=== PATIENT | male | born 1975 | race Caucasian/White ===

== ENCOUNTER 2018-04-02 07:26 | Emergency (ER) | payer MEDICAID ==
[2018-04-02 07:46] VITALS: BP 102/68
[2018-04-02] MEDS ORDERED: Ketorolac 60 MG/2 ML SDV IM ONE (07:56)
--- NOTE | 2018-04-02 08:00 | EDM.PDOC ---
ED HPI GENERAL MEDICAL PROBLEM - General Chief Complaint: Back Pain or Injury Stated Complaint: FELL OF LADDER Time Seen by Provider: 04/02/18 07:56 Source of Information: Reports: Patient History Limitations: Reports: No Limitations - History of Present Illness INITIAL COMMENTS - FREE TEXT/NARRATIVE: pt arrived with pain in the small finger in the rt and it does appear dislocated. He also has pain in his rt rib cage and lower t spine. Onset: Sudden, Other (pt fell 6 ft off of a ladder last nite. ) Duration: Hour(s): Location: Reports: Chest, Upper Extremity, Right Quality: Reports: Sharp, Stabbing Associated Symptoms: Reports: Other (Pain in the rt post rib cage. ) Lower Back Pain Score (Numeric/FACES): 4 - Related Data Allergies Allergy/AdvReac Type Severity Reaction Status Date / Time No Known Allergies Allergy Verified 04/02/18 07:40 Home Meds: Home Meds metFORMIN [Glucophage] 500 mg PO BID 07/20/14 [History] rOPINIRole HCl [Ropinirole HCl] 2 mg PO BEDTIME 07/20/14 [History] Past Medical History HEENT History: Reports: Impaired Vision Genitourinary History: Reports: Renal Calculus Endocrine/Metabolic History: Reports: Diabetes, Type II - Infectious Disease History Infectious Disease History: Reports: Chicken Pox - Past Surgical History Musculoskeletal Surgical History: Reports: Arthroscopic Knee Social & Family History - Tobacco Use Smoking Status *Q: Current Every Day Smoker Years of Tobacco use: 8 Packs/Tins Daily: 0.5 Used Tobacco, but Quit: No Second Hand Smoke Exposure: Yes - Caffeine Use Caffeine Use: Reports: Coffee, Tea - Alcohol Use Days Per Week of Alcohol Use: 0 - Recreational Drug Use Recreational Drug Use: No ED ROS GENERAL - Review of Systems Review Of Systems: See Below Constitutional: Reports: No Symptoms HEENT: Reports: No Symptoms Respiratory: Reports: No Symptoms Cardiovascular: Reports: No Symptoms Endocrine: Reports: No Symptoms GI/Abdominal: Reports: No Symptoms : Reports: No Symptoms Musculoskeletal: Reports: Other (pain in the rt post rib cage and the rt small finger) ED EXAM, UPPER BACK/NECK PAIN - Physical Exam Exam: See Below Text/Narrative:: pt fell odff of a ladder and he hit the small finger on the rt and the rt side if the chest. Exam Limited By: No Limitations General Appearance: Alert, Moderate Distress Ears Exam: Normal TMs Nose Exam: Normal Inspection Throat/Mouth Exam: Normal Inspection Cardiovascular/Respiratory: Other (pt george pain in the rt post chest. He is not tender over the t spine. He is tender out in the lower rib cage. He is not having alot of pain with deep breathing. ) GI/Abdominal: Soft, Non-Tender (Male) Exam: Deferred Rectal (Males) Exam: Deferred Back Exam: Normal Inspection Extremities: Other ( the small finger at the mp joint is dislocated. there is no fracture by xray. ) Course - Vital Signs Last Recorded V/S: Last Vital Signs Temp 37.4 C 04/02/18 07:45 Pulse 117 H 04/02/18 07:45 Resp 16 04/02/18 07:45 BP 102/68 04/02/18 07:45 Pulse Ox 98 04/02/18 07:45 - Orders/Labs/Meds Meds: Medications Discontinued Medications Generic Name Dose Route Start Last Admin Trade Name Jonathan PRN Reason Stop Dose Admin Ketorolac Tromethamine 60 mg 04/02/18 07:56 04/02/18 08:02 Toradol IM 04/02/18 07:57 60 mg ONETIME ONE Administration Lidocaine HCl 20 ml 04/02/18 08:06 04/02/18 08:29 Xylocaine 1% INJECT 04/02/18 08:07 20 ml ONETIME ONE Administration - Re-Assessments/Exams Free Text/Narrative Re-Assessment/Exam: 04/02/18 09:06 The mp joint was cleaned and the joint was injected with lidocaine. The finger was manipulated and traction was applied. This as been out sinc last nite and it would not go back in. Ortho at the clinic was called and [facility] will look at it. Departure - Departure Time of Disposition: 08:52 Disposition: Home, Self-Care 01 Clinical Impression: MP (metacarpophalangeal) joint dislocation, closed, Contusion of rib on right side - Discharge Information Instructions: Finger or Thumb Dislocation, [id number], Contusion, Easy-to- Read Referrals: Adolfo Latham MD [Primary Care Provider] - Forms: ED Department Discharge Care Plan Goals: cool pack to the rib area, motrin 600mg qid for pain, to ortho at the clinic regarding the dislocated rt small finger--mp joint
[2018-04-02] MEDS ORDERED: Lidocaine 1% 20 ML MDV INJECT ONE (08:06)
--- NOTE | 2018-04-02 08:58 | CR ---
Ribs 2V w Chest Rt CLINICAL HISTORY: Right rib pain FINDINGS: There is no acute fracture within the ribs. No destructive changes are seen. There is no fo jenni pleural thickening or obvious effusion. IMPRESSION: Negative right ribs.
--- NOTE | 2018-04-02 09:02 | CR ---
Hand Comp Min 3V Rt CLINICAL HISTORY: Pain, trauma FINDINGS: There is a a dislocation at the fifth MCP joint and the dorsal radial direction. There is s ome mild deformity of the distal aspect of the fifth metacarpal. This could be related to old injury. No definite fracture line is seen. Impression: Dorsal dislocation of the fifth MCP joint Mild deformity of the distal fifth metacarpal may be from old injury.
== END 2018-04-02 09:01 | disposition home or self-care (01) ==
LOC: JP.ED 07:26
DX: S63.266A Dislocation of metacarpophalangeal joint of right little finger, initial encounter (principal); E11.9 Type 2 diabetes mellitus without complications; F17.210 Nicotine dependence, cigarettes, uncomplicated; Z79.84 Long term (current) use of oral hypoglycemic drugs; Z79.899 Other long term (current) drug therapy; Z87.442 Personal history of urinary calculi; W11.XXXA Fall on and from ladder, initial encounter
CPT/HCPCS: 26700; 71101; 73130; 96372; 99284; J1885

== ENCOUNTER 2024-08-28 20:02 | Emergency (ER) | payer SELFPAY ==
[2024-08-28 20:30] LABS: BASOPHILS ABSOLUTE AUTO 0.05 K/uL (0.00-0.10); BASOPHILS PERCENT AUTO 0.7 % (0.1-1.3); EOSINOPHILS ABSOLUTE AUTO 0.28 K/uL (0.00-0.40); EOSINOPHILS PERCENT AUTO 4.2 % (0.0-5.4); HEMATOCRIT 40.4 % (38.4-49.7); HEMOGLOBIN 14.9 g/dL (12.9-16.9); IMMATURE GRAN ABSOLUTE AUTO 0.03 K/uL (0.00-0.23); IMMATURE GRAN PERCENT AUTO 0.4 % (0.0-0.7); LYMPHOCYTES ABSOLUTE AUTO 1.84 K/uL (0.8-3.3); LYMPHOCYTES PERCENT AUTO 27.5 % (11.4-47.7); MEAN CORPUSCULAR HGB CONC 36.9 g/dL (31.6-35.5); MEAN CORPUSCULAR VOLUME 84.2 fL (81.4-99.0); MONOCYTES ABSOLUTE AUTO 0.39 K/uL (0.20-0.90); MONOCYTES PERCENT AUTO 5.8 % (3.3-12.6); NEUTROPHILS ABSOLUTE AUTO 4.09 K/uL (1.0-7.6); NEUTROPHILS PERCENT AUTO 61.4 % (40.0-78.1); PLATELET COUNT,PLT 160 K/uL (130-375); WHITE BLOOD CELL COUNT,WBC 6.7 K/uL (3.2-11.0)
[2024-08-28 20:46] LABS: CALCIUM 8.9 mg/dL (8.5-10.1); EST CRCL DRUG DOSING (CG) 97.26 mL/min; POTASSIUM,K 3.7 mmol/L (3.6-5.2)
[2024-08-28 20:47] LABS: ANION GAP 13.7 mmol/L (5.0-14.0)
[2024-08-28 22:10] LABS: AMPHETAMINES SCREEN, URINE NEGATIVE (NEGATIVE); BARBITURATE SCREEN,URINE NEGATIVE (NEGATIVE); BENZODIAZEPINES SCREEN,URINE NEGATIVE (NEGATIVE); METHADONE SCREEN, URINE NEGATIVE (NEGATIVE); METHAMPHETAMINES SCREEN, URINE NEGATIVE (NEGATIVE); OXYCODONE SCREEN,URINE NEGATIVE (NEGATIVE); PROPOXYPHENE SCREEN,URINE NEGATIVE (NEGATIVE); THC SCREEN,URINE 50 NG/ML NEGATIVE (NEGATIVE)
[2024-08-28 22:17] VITALS: BP 129/75; PULSE 101
[2024-08-28] MEDS: metFORMIN 500 MG Tab PO ONE (22:24)
== END 2024-08-28 22:55 | disposition home or self-care (01) ==
LOC: JP.ED 20:02
DX: F43.10 Post-traumatic stress disorder, unspecified (principal); F10.120 Alcohol abuse with intoxication, uncomplicated; F17.210 Nicotine dependence, cigarettes, uncomplicated; E11.9 Type 2 diabetes mellitus without complications; Z79.84 Long term (current) use of oral hypoglycemic drugs; Z79.899 Other long term (current) drug therapy
CPT/HCPCS: 36415; 80048; 80305; 80307; 85025; 99285; A9270